=== PATIENT | male | born 1990 | race African-American/Black ===

== ENCOUNTER 2021-06-08 21:57 | Emergency (ER) | payer SELFPAY ==
[2021-06-08] MEDS ORDERED: Lidocaine Viscous Sol 2% 15 ml UD Cup ONE (22:30)
[2021-06-08] MEDS ORDERED: Ondansetron ODT 4 MG TAB ONE (22:30)
[2021-06-08] MEDS ORDERED: Mag-Al Plus 1200 MG/1200 MG/120 MG/30 ML UDCUP ONE (22:30)
== END 2021-06-08 23:06 | disposition home or self-care (01) ==
LOC: MADERS 21:57
DX: K52.9 Noninfective gastroenteritis and colitis, unspecified (principal)
CPT/HCPCS: 99283; Q0162

== ENCOUNTER 2021-07-14 14:04 | Emergency (ER) | payer SELFPAY ==
[2021-07-14] MEDS ORDERED: Ibuprofen 600 MG TAB ONE (15:24)
[2021-07-14] MEDS ORDERED: Acetaminophen 500 MG TAB ONE (15:24)
[2021-07-14 16:07] LABS: SARS-CoV-2 NAA Rapid Test Not Detected (NotDetected)
== END 2021-07-14 16:42 | disposition home or self-care (01) ==
LOC: MADERS 14:04
DX: J06.9 Acute upper respiratory infection, unspecified (principal); Z20.822 Contact with and (suspected) exposure to COVID-19; Z87.891 Personal history of nicotine dependence
CPT/HCPCS: 71046

== ENCOUNTER 2021-07-27 21:49 | Emergency (ER) | payer SELFPAY ==
[2021-07-27 22:55] LABS: Hemoglobin 13.1 g/dL (14.0-18.0); Mean Corpuscular HGB CONC 32.3 g/dL (32.0-36.0); Mean Corpuscular Hemoglobin 24.7 pg (27.0-31.0); Mean Corpuscular Volume 76.5 fL (78.0-98.0); Mean Platelet Volume 7.8 fL (7.4-10.4); Platelet Count 197 thou/uL (130-400); RBC Distribution Width 13.2 % (11.5-14.5); Red Blood Cell (RBC) Count 5.29 mill/uL (4.70-6.10); White Blood Cell (WBC) Count 6.6 thou/uL (4.8-10.8)
[2021-07-27] MEDS ORDERED: Ketorolac Tromethamine 30 MG/ML VIAL ONE (23:04)
[2021-07-27] MEDS ORDERED: Metoclopramide HCl 10 MG/2 ML VIAL ONE (23:04)
[2021-07-27] MEDS ORDERED: diphenhydrAMINE 50 MG/ML VIAL ONE (23:04)
[2021-07-27 23:15] LABS: ALT (SGPT) 13 U/L (8-55); AST (SGOT) 25 U/L (5-34); Albumin 3.9 g/dL (3.5-5.0); Alkaline Phosphatase 47 U/L (40-110); Anion Gap 15 mmol/L (10-20); BUN (Urea Nitrogen) 11 mg/dL (8.9-20.6); Bilirubin, Total 0.3 mg/dL (0.2-1.2); Calc. Creatinine Clearance 0 mL/min (70-130); Calcium 9.4 mg/dL (7.8-10.44); Carbon Dioxide 24 mmol/L (22-29); Chloride 104 mmol/L (98-107); Glucose 101 mg/dL (70-105); Lipase 39 U/L (8-78); Potassium 3.6 mmol/L (3.5-5.1); Protein, Total 6.9 g/dL (6.0-8.3); Sodium 139 mmol/L (136-145)
== END 2021-07-27 23:54 | disposition home or self-care (01) ==
LOC: MADERS 21:49
DX: K29.00 Acute gastritis without bleeding (principal); F17.200 Nicotine dependence, unspecified, uncomplicated
CPT/HCPCS: 80053; 83690; 85025; 96374; 96375; J1200; J1885; J2765

== ENCOUNTER 2021-08-11 06:12 | Emergency (ER) | payer SELFPAY | END 2021-08-11 06:56 | disposition home or self-care (01) | LOC: MADERS 06:12 | DX: K29.00 Acute gastritis without bleeding (principal); R00.1 Bradycardia, unspecified; F17.200 Nicotine dependence, unspecified, uncomplicated ==

== ENCOUNTER 2021-09-24 16:01 | Emergency (ER) | payer BC, SELFPAY | END 2021-09-24 18:00 | disposition home or self-care (01) | LOC: MADERS 16:01 | DX: R42 Dizziness and giddiness (principal); F17.200 Nicotine dependence, unspecified, uncomplicated | CPT/HCPCS: 99283 ==

== ENCOUNTER 2021-10-14 12:18 | Emergency (ER) | payer BC | END 2021-10-14 13:28 | disposition home or self-care (01) | LOC: MADERS 12:18 | DX: S46.811A Strain of other muscles, fascia and tendons at shoulder and upper arm level, right arm, initial encounter (principal); F17.200 Nicotine dependence, unspecified, uncomplicated; X58.XXXA Exposure to other specified factors, initial encounter | CPT/HCPCS: 99283 ==

== ENCOUNTER 2021-12-18 06:40 | Emergency (ER) | payer BC ==
[2021-12-18] MEDS ORDERED: Ibuprofen 800 MG TAB ONE (07:11)
== END 2021-12-18 07:15 | disposition home or self-care (01) ==
LOC: MADERS 06:40
DX: H60.92 Unspecified otitis externa, left ear (principal); F17.200 Nicotine dependence, unspecified, uncomplicated
CPT/HCPCS: 99282

== ENCOUNTER 2022-02-24 09:28 | Emergency (ER) | payer BC, SELFPAY | END 2022-02-24 10:45 | disposition home or self-care (01) | LOC: MADERS 09:28 | DX: J06.9 Acute upper respiratory infection, unspecified (principal); F17.200 Nicotine dependence, unspecified, uncomplicated | CPT/HCPCS: 87081; 87430; 99283 ==

== ENCOUNTER 2022-03-29 12:06 | Emergency (ER) | payer OTHER, SELFPAY | END 2022-03-29 12:50 | disposition home or self-care (01) | LOC: MADERS 12:06 | DX: R42 Dizziness and giddiness (principal); J02.9 Acute pharyngitis, unspecified; R29.700 NIHSS score 0; F17.200 Nicotine dependence, unspecified, uncomplicated | CPT/HCPCS: 93005 ==

== ENCOUNTER 2022-04-12 08:26 | Emergency (ER) | payer OTHER ==
[2022-04-12] MEDS ORDERED: Dexamethasone 10 MG/ML VIAL ONE (09:05)
[2022-04-12] MEDS ORDERED: Ketorolac Tromethamine 60 MG/2 ML VIAL ONE (09:05)
[2022-04-12 09:33] LABS: #Basophils 0.1 thou/uL (0.0-0.2); #Eosinphils 0.1 thou/uL (0.0-0.7); #Lymphocytes 2.3 thou/uL (1.20-3.40); #Monocytes 0.3 thou/uL (0.11-0.59); #Neutrophils 2.6 thou/uL (1.40-6.50); %Basophils 2.1 % (0.0-1.0); %Eosinophils 2.5 % (0.0-10.0); %Lymphocytes 41.8 % (21.0-51.0); %Monocytes 5.5 % (0.0-10.0); %Neutrophils 48.1 % (42.0-75.0); Hemoglobin 13.7 g/dL (14.0-18.0); Mean Corpuscular HGB CONC 32.6 g/dL (32.0-36.0); Mean Corpuscular Hemoglobin 25.2 pg (27.0-31.0); Mean Corpuscular Volume 77.3 fl (78.0-98.0); Mean Platelet Volume 6.4 fL (7.4-10.4); Platelet Count 240 10x3/uL (130-400); RBC Distribution Width 12.2 % (11.5-14.5); Red Blood Cell (RBC) Count 5.43 mill/uL (4.70-6.10); White Blood Cell (WBC) Count 5.4 10x3/uL (4.8-10.8)
[2022-04-12 09:50] LABS: ALT (SGPT) 12 U/L (8-55); AST (SGOT) 22 U/L (5-34); Albumin 4.2 g/dL (3.5-5.0); Alkaline Phosphatase 39 U/L (40-110); Anion Gap 13 mmol/L (10-20); BUN (Urea Nitrogen) 15 mg/dL (8.9-20.6); Bilirubin, Total 0.8 mg/dL (0.2-1.2); CK (CPK) 351 U/L (30-200); Calc. Creatinine Clearance 0 mL/min (70-130); Calcium 9.6 mg/dL (7.8-10.44); Carbon Dioxide 25 mmol/L (22-29); Chloride 105 mmol/L (98-107); Estimated GFR 77; Glucose 106 mg/dL (70-105); Lipase 27 U/L (8-78); Potassium 3.8 mmol/L (3.5-5.1); Protein, Total 7.2 g/dL (6.0-8.3); Sodium 139 mmol/L (136-145)
[2022-04-12 09:55] LABS: Amphetamine Detected (NotDetected); Barbiturates Screen Not Detected (NotDetected); Benzodiazepine Screen Not Detected (NotDetected); Cocaine Metabolite Screen Not Detected (NotDetected); Medtox Control Line Valid? VALID (VALID); Methadone Not Detected (NotDetected); Methamphetamine Detected (NotDetected); Opiate Screen Not Detected (NotDetected); Oxycodone Screen Not Detected (NotDetected); Phencyclidine (PCP) Not Detected (NotDetected); THC/Cannabinoid Screen Detected (NotDetected); Tricyclic Screen Not Detected (NotDetected)
== END 2022-04-12 19:33 | disposition home or self-care (01) ==
LOC: MADERS 08:26
DX: R07.89 Other chest pain (principal); M94.0 Chondrocostal junction syndrome [Tietze]; F15.10 Other stimulant abuse, uncomplicated; F17.200 Nicotine dependence, unspecified, uncomplicated
CPT/HCPCS: 36415; 71045; 80053; 80306; 82550; 83690; 84484; 85025; 93005; 96372; J1100; J1885

== ENCOUNTER 2022-06-19 10:20 | Emergency (ER) | payer OTHER ==
[2022-06-19] MEDS ORDERED: Ibuprofen 800 MG TAB ONE (10:58)
== END 2022-06-19 11:40 | disposition home or self-care (01) ==
LOC: MADERS 10:20
DX: S46.912A Strain of unspecified muscle, fascia and tendon at shoulder and upper arm level, left arm, initial encounter (principal); F17.210 Nicotine dependence, cigarettes, uncomplicated; X50.3XXA Overexertion from repetitive movements, initial encounter

== ENCOUNTER 2023-05-10 08:29 | Emergency (ER) | payer OTHER ==
[2023-05-10] MEDS ORDERED: Ketorolac Tromethamine 10 MG TAB ONE (09:50)
[2023-05-10 23:03] LABS: SARS-CoV-2 N1 Negative; SARS-CoV-2 N2 Negative; SARS-CoV-2 RNAse P1 Positive; SARS-CoV-2 RNAse P2 Positive
== END 2023-05-10 10:00 | disposition home or self-care (01) ==
LOC: MADERS 08:29
DX: J06.9 Acute upper respiratory infection, unspecified (principal); F17.210 Nicotine dependence, cigarettes, uncomplicated
CPT/HCPCS: 87081; 87430; 87635; 87804; 99283

== ENCOUNTER 2023-09-26 18:29 | Emergency (ER) | payer OTHER ==
[2023-09-26] MEDS ORDERED: Ondansetron ODT 4 MG TAB ONE (18:57)
== END 2023-09-26 19:23 | disposition home or self-care (01) ==
LOC: MADERS 18:29
DX: A05.9 Bacterial foodborne intoxication, unspecified (principal); F17.210 Nicotine dependence, cigarettes, uncomplicated
CPT/HCPCS: 99283; Q0162